=== PATIENT | female | born 1985 | race Caucasian/White ===

== ENCOUNTER 2016-11-15 13:07 | Emergency (ER) | payer BC, OTHER ==
[2016-11-15 13:22] VITALS: BP 116/75
--- NOTE | 2016-11-15 13:59 | UC ---
Complaint Female HPI - HPI Summary HPI Summary: 31 y/o female present to the urgent care c/o of burning and frequency on urination since this morning. Patient states she has had UTIs before and her symptoms are very similar. She also states her symptoms are associated with a mild pelvic pain. She denies any back pain, N/V. Her LMP 11/06/2016. She is sexually active. - History Of Current Complaint Chief Complaint: UCGU Stated Complaint: URINARY ISSUE Time Seen by Provider: 11/15/16 13:26 Hx Obtained From: Patient Hx Last Menstrual Period: 11/06/2016 Onset/Duration: Sudden Onset, Still Present Timing: Constant Severity Initially: Mild Severity Currently: Mild Pain Intensity: 0 Aggravating Factor(s): Urination - pain and burning sensation on urination Alleviating Factor(s): Nothing - Allergies/Home Medications Allergies/Adverse Reactions: Allergies Allergy/AdvReac Type Severity Reaction Status Date / Time Phenobarbital Allergy Hives Verified 05/02/14 15:17 BEES Allergy Unknown Uncoded 04/03/12 09:58 Reaction Details PMH/Surg Hx/FS Hx/Imm Hx Endocrine History Of: Denies: Diabetes, Thyroid Disease Cardiovascular History Of: Denies: Cardiac Disorders, Hypertension Respiratory History Of: Denies: COPD, Asthma GI/ History Of: Denies: Ulcer Neurological History Of: Reports: Seizures - as a child-stopped at age 9 Psychological History Of: Reports: Anxiety - see a therapist for, Depression - Surgical History Surgical History: Yes Surgery Procedure, Year, and Place: wisdom teeth removed. epidural with childbirth - Family History Known Family History: Positive: Hypertension, Diabetes - from both parents - Social History Alcohol Use: None Substance Use Type: None Smoking Status (MU): Never Smoked Tobacco Have You Smoked in the Last Year: No - Immunization History Most Recent Influenza Vaccination: 04/01/14 Most Recent Tetanus Shot: 04/01/14 Most Recent Pneumonia Vaccination: ref Review of Systems Skin: Negative Eyes: Negative ENT: Negative Respiratory: Negative Cardiovascular: Negative Gastrointestinal: Negative Genitourinary: Negative Neurological: Negative All Other Systems Reviewed And Are Negative: Yes Physical Exam Triage Information Reviewed: Yes Appearance: Well-Appearing, No Pain Distress, Well-Nourished Vital Signs: Initial Vital Signs Temp 98.4 F 11/15/16 13:17 Pulse 68 11/15/16 13:17 Resp 16 11/15/16 13:17 BP 116/75 11/15/16 13:17 Pulse Ox 100 11/15/16 13:17 Vital Signs Reviewed: Yes Eye Exam: Normal ENT Exam: Normal Neck exam: Normal Respiratory Exam: Normal Respiratory: Positive: Chest non-tender, Normal breath sounds Cardiovascular: Positive: RRR, No Murmur, Pulses Normal Abdomen Description: Positive: Nontender, No Organomegaly, Soft, Other: - mild tenderness on deep palpation over suprapubic area. Negative: CVA Tenderness (R) , CVA Tenderness (L) Bowel Sounds: Positive: Present Neurological Exam: Normal Complaint Female Dx - Differential Dx/Diagnosis Provider Diagnoses: uti Discharge - Discharge Plan Condition: Stable Disposition: HOME Prescriptions: Nitrofurantoin Monohyd Macro [Macrobid] 100 mg PO BID #14 cap Patient Education Materials: Urinary Tract Infection in Women (ED) Referrals: Homero Zamorano MD [Primary Care Provider] - Additional Instructions: please take medication as directed and increase fluid intake. If symptoms worsen follow up with your PCP or return to the unrgent care for further evaluation
== END 2016-11-15 13:57 | disposition home or self-care (01) ==
LOC: UCEAST 13:07
DX: N39.0 Urinary tract infection, site not specified (principal); B96.89 Other specified bacterial agents as the cause of diseases classified elsewhere
CPT/HCPCS: 81003; 87077; 87086; 87186; 99212; G0463

== ENCOUNTER 2016-11-19 09:32 | Emergency (ER) | payer BC, OTHER ==
[2016-11-19 09:49] VITALS: BP 113/57
--- NOTE | 2016-11-19 10:02 | UC ---
Complaint Female HPI - HPI Summary HPI Summary: 31 yo female being rx for a UTI on day #5 of macrodantin now with vaginal discharge and ?blood in urine no f/c no back pain no abd or pelvic pain - History Of Current Complaint Chief Complaint: UCGU Stated Complaint: BLOOD IN URINE Time Seen by Provider: 11/19/16 10:00 Hx Obtained From: Patient Hx Last Menstrual Period: 11/12/16 Onset/Duration: Gradual Onset, Lasting Days Timing: Constant Severity Initially: Mild Severity Currently: None Pain Intensity: 0 Pain Scale Used: 0-10 Numeric Character: Burning Aggravating Factor(s): Urination Associated Signs And Symptoms: Positive: Vaginal Bleeding/Discharge, Vaginal Discharge, Nausea. Negative: Fever, Back Pain, Vomiting(# Of Episodes =), Genital Swelling, Genital Blisters, Retained Foregin Body (Specify) - Allergies/Home Medications Allergies/Adverse Reactions: Allergies Allergy/AdvReac Type Severity Reaction Status Date / Time Phenobarbital Allergy Hives Verified 11/19/16 09:49 BEES Allergy Unknown Uncoded 11/19/16 09:49 Reaction Details PMH/Surg Hx/FS Hx/Imm Hx Previously Healthy: Yes Endocrine History Of: Denies: Diabetes, Thyroid Disease Cardiovascular History Of: Denies: Cardiac Disorders, Hypertension Respiratory History Of: Denies: COPD, Asthma GI/ History Of: Denies: Ulcer Neurological History Of: Reports: Seizures - as a child-stopped at age 9 Psychological History Of: Reports: Anxiety - see a therapist for, Depression - Surgical History Surgical History: Yes Surgery Procedure, Year, and Place: wisdom teeth removed. epidural with childbirth - Family History Known Family History: Positive: Hypertension, Diabetes - from both parents - Social History Alcohol Use: None Substance Use Type: None Smoking Status (MU): Never Smoked Tobacco Have You Smoked in the Last Year: No - Immunization History Most Recent Influenza Vaccination: 04/01/14 Most Recent Tetanus Shot: 04/01/14 Most Recent Pneumonia Vaccination: ref Review of Systems Constitutional: Negative Skin: Negative Eyes: Negative ENT: Negative Respiratory: Negative Cardiovascular: Negative Gastrointestinal: Negative Genitourinary: Dysuria, Hematuria - ?, Other - vaginal d/c Motor: Negative Neurovascular: Negative Musculoskeletal: Negative Neurological: Negative Psychological: Negative All Other Systems Reviewed And Are Negative: Yes Physical Exam Triage Information Reviewed: Yes Appearance: Well-Appearing, No Pain Distress, Well-Nourished Vital Signs: Initial Vital Signs Temp 97.7 F 11/19/16 09:41 Pulse 65 11/19/16 09:41 Resp 18 11/19/16 09:41 BP 113/57 11/19/16 09:41 Pulse Ox 99 11/19/16 09:41 Vital Signs Reviewed: Yes Eyes: Positive: Conjunctiva Clear ENT: Positive: Hearing grossly normal. Negative: Nasal congestion, Nasal drainage, Tonsillar exudate, Trismus, Muffled/hoarse voice Neck: Positive: Supple, Nontender Respiratory: Positive: Lungs clear, Normal breath sounds, No respiratory distress Cardiovascular: Positive: RRR, No Murmur Abdomen Description: Positive: Nontender, No Organomegaly, Soft, Other: - <ext genitalia-no lesions> <vagina-mild whitish d/c> <cx-dark bloody d/c scant, no CMT> <uterus- non tender> <adenxa-non tender and no masses> Bowel Sounds: Positive: Present Musculoskeletal: Positive: Strength Intact, ROM Intact Neurological: Positive: Alert Psychological Exam: Normal Skin Exam: Normal Complaint Female Dx - Differential Dx/Diagnosis Provider Diagnoses: spotting. 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
== END 2016-11-19 11:16 | disposition home or self-care (01) ==
LOC: UCEAST 09:32
DX: N76.0 Acute vaginitis (principal); N93.9 Abnormal uterine and vaginal bleeding, unspecified; F41.9 Anxiety disorder, unspecified; F32.9 Major depressive disorder, single episode, unspecified; Z91.030 Bee allergy status
CPT/HCPCS: 81003; 84702; 87086; 87480; 87491; 87510; 87591; 87661; 99212; G0463